=== PATIENT | female | born 1965 | race Two or more races ===

== ENCOUNTER → 2022-06-18 | Emergency (ER) | payer OTHER ==
[~2022-06-18] VITALS: Ht 157.5 cm; Wt 79.8 kg
[~2022-06-18] MED LIST: CRESTOR10 MG; VITAMIN D310 MC4
== END | disposition home or self-care (01) ==
LOC: ER 10:52
DX: B34.9 Viral infection, unspecified (principal); Z86.16 Personal history of COVID-19